=== PATIENT | female | born 1975 | race Caucasian/White ===

== ENCOUNTER → 2020-06-11 16:00 | Outpatient (BNVA) | payer OTHER, SELFPAY | PROVIDERS: Family Provider Family Medicine; Visit Provider Nurse Practitioner Women's Health | DX: Z01.419 Encounter for gynecological examination (general) (routine) without abnormal findings (principal); N90.7 Vulvar cyst | CPT/HCPCS: 88175 ==

== ENCOUNTER 2020-11-09 22:03 | Emergency (ER) | payer OTHER, SELFPAY ==
[2020-11-09 22:10] VITALS: BP 166/94; PULSE 103; RESP 18; TEMP 36.3; O2SAT 100; BMI 30.1
--- NOTE | 2020-11-09 22:17 | W.ED.CHESTPA ---
HPI - Chest Pain General: Chief Complaint: Chest Pain Stated Complaint: heaviness in chest, light headed, Time Seen by Provider: 11/09/20 22:17 Source: patient and family Mode of arrival: ambulatory Limitations: no limitations History of Present Illness: HPI narrative: Naomie is a nice 45-year-old female who comes in complaining of abrupt onset of lightheadedness followed by chest heaviness. She states that she was sitting at rest when this all started. After this she developed diffuse body tingling. Patient feels better now but still has the tingling and feels lightheaded. She said her chest heaviness is minimal if present at all anymore. Patient denies having anything similar to this in the past. Over the past week she has had courses of nausea and vomiting and diarrhea but she stated earlier today she felt better until this happened tonight. The symptoms tonight she cannot relate any exacerbating or alleviating factors. She denies having anything similar in the past. She has not tried anything for this at home. Associated symptoms: Deny abdominal pain, diaphoresis, dyspnea, fever(s), palpitations or syncope Review of Systems Const: Denies: fever(s), chills, body aches, fatigue, malaise or diaphoresis Eyes: Denies: change in vision, blurry vision, photophobia, eye discomfort, eye discharge, eye redness or yellow eyes ENMT: Denies: throat pain, odynophagia, hoarseness, swelling of lips/tongue, ear or mastoid pain, ear discharge, change in hearing or nasal discharge Card: Reports: chest pain; Denies: palpitations, irregular heart rhythm, edema, lightheadedness, syncope, pre-syncope, dyspnea on exertion or orthopnea Resp: Denies: dyspnea, productive cough, non-productive cough, wheezing, hemoptysis or chest congestion GI: Denies: abdominal pain, hematemesis, coffee ground emesis, heartburn, constipation, GI cramping, hematochezia or melena : Denies: flank pain, dysuria, urinary frequency, urinary urgency or hematuria Musc: Denies: neck pain, back pain, extremity pain, extremity swelling, joint pain, joint swelling, joint redness, joint warmth or joint stiffness Skin/Breast: Denies: rash, pruritus, erythema, skin pain or skin tenderness Neuro: Reports: dizziness; Denies: headache(s), numbness in extremities, weakness in extremities, sensory changes, lack of coordination, difficulty walking, vertigo, confusion, Slurred speech present or seizure-like activity Bladimir/Lymph: Denies: easy bruising, easy bleeding, petechiae, purpura or enlarged lymph nodes All/Imm: Denies: urticaria, throat swelling, tongue swelling, facial swelling or acute wheezing PFSH ED PFSH: Medical History (Updated 11/10/20 @ 02:05 by Natasha Dial) Polycystic kidney disease Surgical History History of appendectomy (~1986) Family History Family/Other Breast cancer Paternal aunt Mother Hypertension Denies family history of Colon cancer Ovarian cancer Diabetes Heart disease Hyperlipidemia Family history of thyroid problem Uterine cancer Stroke Social History Smoking and tobacco status: never smoked Alcohol intake: never Additional social history: - Tobacco use: Denies Alcohol use: Denies Drug use: Denies Physical Exam Const: COMMON NORMALS: no acute distress, patient oriented x3, no limitations and alert GENERAL APPEARANCE: cooperative HENMT: COMMON NORMALS: normocephalic, atraumatic, external ears normal, EAC's normal and Normal external nose present HEAD & SCALP: normal to inspection, normocephalic and atraumatic FACE & SINUS: normal facial exam and face symmetric NOSE: Normal external nose present and Normal nares present EXTERNAL EAR: Yes external ears normal EXTERNAL AUDITORY CANAL: EAC's normal MOUTH: Normal oral and palatal mucosa present, lip normal and tongue normal Eye: COMMON NORMALS: Equal, round and reactive pupils present and conjunctivae normal GENERAL EYE: appearance normal, both eyes and all related structures ALIGNMENT: Yes alignment normal PERIORBITAL: periorbital findings normal EYELID: eyelids normal CONJUNCTIVA: Yes conjunctivae normal SCLERA: sclerae normal PUPIL: Yes Equal, round and reactive pupils present Neck/C-Spine: COMMON NORMALS: full ROM, no lymphadenopathy, supple, no meningeal signs and no JVD GENERAL: Yes normal visual inspection and Yes trachea midline Chest: COMMONS NORMALS: normal inspection of the chest and normal palpation of entire chest wall Resp: COMMON NORMALS: normal respiratory effort, No retractions, No use of accessory muscles and clear to auscultation bilaterally EFFORT & INSPECTION: Yes able to speak in complete sentences and Yes symmetric chest movement AUSCULTATION: clear to auscultation bilaterally, no crackles, no rales, no rhonchi and no wheezes Cardio: COMMON NORMALS: no JVD, regular rate, regular rhythm, S1 normal heart sound present and S2 normal heart sound present RATE: regular rate RHYTHM: regular rhythm HEART SOUNDS: S1 normal heart sound present, S2 normal heart sound present, no click, no gallops, no murmurs and no rubs GI: COMMON NORMALS: Soft to palpation and No hepatosplenomegaly present PALPATION: Yes Soft to palpation, No Tenderness to palpation present (GI), No Guarding due to palpation present (GI), No Rigid due to palpation, Yes No hepatosplenomegaly present, No Hernia present, No Palpable mass present and No Pulsatile mass present : COMMON NORMALS: Yes no CVA tenderness BLADDER/KIDNEY EXAM: Yes no CVA tenderness EXTERNAL FEMALE EXAM: No Hernia present Back/Pelvis: COMMON NORMALS: no CVA tenderness, thoracic and lumbar spine normal to inspection, no thoracic nor lumbar tenderness and thoraco-lumbar ROM normal Extremity: COMMON NORMALS: normal to inspection, full ROM, capillary refill normal, no joint enlargement, no clubbing, cyanosis or edema and no calf tenderness Neuro: COMMON NORMALS: patient oriented x3, CN's II-XII intact bilaterally, moves all extremities, no focal motor deficits and no sensory deficits noted SENSORIUM/ORIENTATION: Yes alert MENINGEAL SIGNS: Yes no meningeal signs SPEECH: speech normal Psych: COMMON NORMALS: mental status grossly normal, Normal thought process present, cooperative, normal affect, speech normal and activity/motor behavior normal SPEECH: Yes normal speech THOUGHT PROCESS: Normal thought process present Skin: COMMON NORMALS: no rashes or lesions noted, turgor normal, no jaundice, no petechiae and no mottling GENERAL SKIN EXAM: no rashes or lesions noted and turgor normal Course Vital Signs: Vital signs: Vital Signs Temperature 97.3 F L 11/09/20 22:10 Pulse Rate 85 11/10/20 00:09 Respiratory Rate 18 11/10/20 01:00 Blood Pressure 120/68 11/10/20 01:00 Pulse Oximetry 97 11/10/20 01:00 MDM - Chest Pain MDM Narrative: Medical decision making narrative: 0004 -patient states she is currently feeling much better at this time. She states that she denies any chest heaviness. She has vomited once here and she states that since vomiting she feels much better. Currently she is resting comfortably with stable and normal vital signs. 0120 -patient still feels better. I discussed with her the findings of her CT scan. She understands him in an ultrasound to help better risk stratify her symptoms. Clinically I believe this pneumonia is likely the cause. It is possible she still has the COVID-19 virus and I am going to send the PTC. I have recommended also a VQ scan but the patient at this time does not feel like she wants to wait that long. We will proceed with ultrasound and if negative I will ask her again about how she would like to proceed. 0207 -Magalie is a very nice 45-year-old female who comes in with chest pressure but after vomiting all of her chest pressure resolved. The patient is felt better since then. Patient appeared to be somewhat dehydrated from her vomiting and diarrhea that she had at home prior to coming in. After IV fluids and antiemetic she is feeling much better. Chest x-ray reveals infiltrates but I do not believe she is aspirated. Think this is more likely COVID-19 pneumonia. Patient is going to be tested again and sent home on antibiotics. She understands to keep her self home and quarantine until contacted by us. Lab Data: Attestation: I reviewed the patient's lab results. Labs: Lab Results 11/09/20 11/09/20 11/09/20 Range/Units 22:12 22:12 22:12 WBC 10.2 H (4.0-10.0) 10^3/ uL RBC 4.34 (4.1-5.3) 10^6/u L Hgb 13.5 (11.5-15.3) g/dL Hct 40.4 (37.0-47.0) % MCV 93.1 (81-99) fL MCH 31.1 (28.0-34.0) pg MCHC 33.4 (30.0-36.0) g/dL RDW 12.7 (12.1-15.1) % Plt Count 247 (130-400) 10^3/c mm MPV 10.7 H (7.4-10.4) fL Neut % (Auto) 59.0 % Lymph % (Auto) 30.4 % Garfield % (Auto) 9.3 % Eos % (Auto) 0.5 % Baso % (Auto) 0.4 % Neut # (Auto) 6.03 (1.8-7.7) 10^3/u L Lymph # (Auto) 3.1 (0.8-4.8) 10^3/u L Garfield # (Auto) 1.0 H (0.2-0.9) 10^3/u L Eos # (Auto) 0.1 (0.0-0.8) 10^3/u L Baso # (Auto) 0.0 (0.0-0.1) 10^3/u L Nucleated RBC % (a uto) 0 % Nucleated RBCs # 0.0 /100WBC D-Dimer 1.21 H (0-0.59) ug/mIFE U Sodium 140 (136-145) mmol/L Potassium 4.2 (3.5-5.1) mmol/L Chloride 103 (98-107) mmol/L Carbon Dioxide 24 (22-29) mmol/L Anion Gap 17.2 (5-19) BUN 18 (6-20) mg/dL Creatinine 1.5 H (0.5-0.9) mg/dL GFR Calculation 37.2 L (90-130) mL/min Glucose 118 H (65-115) mg/dL Calculated Osmolal ity 293 (285-295) mOsm/k g Lactic Acid (0.5-2.2) mmol/L Calcium 9.0 (8.5-10.5) mg/dL Magnesium 2.4 H (1.7-2.3) mg/dL Total Bilirubin 0.3 (0.15-1.2) mg/dL AST 15 (0-32) U/L ALT 13 (0-33) U/L Alkaline Phosphata se 90 (35-105) IU/L Troponin T Baselin e (0-10) ng/L Troponin T 120 Min [place] (0-10) ng/L Delta Troponin T (0-10) ABS# Total Protein 7.2 (6.6-8.7) g/dL Albumin 4.4 (3.5-5.2) g/dL Globulin 2.8 (1.3-4.6) g/dL Lipase 60 (13-60) U/L HCG, Qual (Negative) Influenza Type A A g (Negative) Influenza Type B A g (Negative) SARS-CoV-2 Ag (Rap id) (Negative) 11/09/20 11/09/20 11/09/20 Range/Units 22:12 22:12 22:12 WBC (4.0-10.0) 10^3/ uL RBC (4.1-5.3) 10^6/u L Hgb (11.5-15.3) g/dL Hct (37.0-47.0) % MCV (81-99) fL MCH (28.0-34.0) pg MCHC (30.0-36.0) g/dL RDW (12.1-15.1) % Plt Count (130-400) 10^3/c mm MPV (7.4-10.4) fL Neut % (Auto) % Lymph % (Auto) % Garfield % (Auto) % Eos % (Auto) % Baso % (Auto) % Neut # (Auto) (1.8-7.7) 10^3/u L Lymph # (Auto) (0.8-4.8) 10^3/u L Garfield # (Auto) (0.2-0.9) 10^3/u L Eos # (Auto) (0.0-0.8) 10^3/u L Baso # (Auto) (0.0-0.1) 10^3/u L Nucleated RBC % (a uto) % Nucleated RBCs # /100WBC D-Dimer (0-0.59) ug/mIFE U Sodium (136-145) mmol/L Potassium (3.5-5.1) mmol/L Chloride (98-107) mmol/L Carbon Dioxide (22-29) mmol/L Anion Gap (5-19) BUN (6-20) mg/dL Creatinine (0.5-0.9) mg/dL GFR Calculation (90-130) mL/min Glucose (65-115) mg/dL Calculated Osmolal ity (285-295) mOsm/k g Lactic Acid 2.9 H (0.5-2.2) mmol/L Calcium (8.5-10.5) mg/dL Magnesium (1.7-2.3) mg/dL Total Bilirubin (0.15-1.2) mg/dL AST (0-32) U/L ALT (0-33) U/L Alkaline Phosphata se (35-105) IU/L Troponin T Baselin e 6 (0-10) ng/L Troponin T 120 Min [place] (0-10) ng/L Delta Troponin T (0-10) ABS# Total Protein (6.6-8.7) g/dL Albumin (3.5-5.2) g/dL Globulin (1.3-4.6) g/dL Lipase (13-60) U/L HCG, Qual Negative (Negative) Influenza Type A A g (Negative) Influenza Type B A g (Negative) SARS-CoV-2 Ag (Rap id) (Negative) 11/09/20 11/09/20 11/10/20 Range/Units 22:40 22:40 00:20 WBC (4.0-10.0) 10^3/ uL RBC (4.1-5.3) 10^6/u L Hgb (11.5-15.3) g/dL Hct (37.0-47.0) % MCV (81-99) fL MCH (28.0-34.0) pg MCHC (30.0-36.0) g/dL RDW (12.1-15.1) % Plt Count (130-400) 10^3/c mm MPV (7.4-10.4) fL Neut % (Auto) % Lymph % (Auto) % Garfield % (Auto) % Eos % (Auto) % Baso % (Auto) % Neut # (Auto) (1.8-7.7) 10^3/u L Lymph # (Auto) (0.8-4.8) 10^3/u L Garfield # (Auto) (0.2-0.9) 10^3/u L Eos # (Auto) (0.0-0.8) 10^3/u L Baso # (Auto) (0.0-0.1) 10^3/u L Nucleated RBC % (a uto) % Nucleated RBCs # /100WBC D-Dimer (0-0.59) ug/mIFE U Sodium (136-145) mmol/L Potassium (3.5-5.1) mmol/L Chloride (98-107) mmol/L Carbon Dioxide (22-29) mmol/L Anion Gap (5-19) BUN (6-20) mg/dL Creatinine (0.5-0.9) mg/dL GFR Calculation (90-130) mL/min Glucose (65-115) mg/dL Calculated Osmolal ity (285-295) mOsm/k g Lactic Acid (0.5-2.2) mmol/L Calcium (8.5-10.5) mg/dL Magnesium (1.7-2.3) mg/dL Total Bilirubin (0.15-1.2) mg/dL AST (0-32) U/L ALT (0-33) U/L Alkaline Phosphata se (35-105) IU/L Troponin T Baselin e (0-10) ng/L Troponin T 120 Min [place] 6.00 (0-10) ng/L Delta Troponin T 0 (0-10) ABS# Total Protein (6.6-8.7) g/dL Albumin (3.5-5.2) g/dL Globulin (1.3-4.6) g/dL Lipase (13-60) U/L HCG, Qual (Negative) Influenza Type A A g Negative (Negative) Influenza Type B A g Negative (Negative) SARS-CoV-2 Ag (Rap id) Negative (Negative) 11/10/20 Range/Units 00:20 WBC (4.0-10.0) 10^3/ uL RBC (4.1-5.3) 10^6/u L Hgb (11.5-15.3) g/dL Hct (37.0-47.0) % MCV (81-99) fL MCH (28.0-34.0) pg MCHC (30.0-36.0) g/dL RDW (12.1-15.1) % Plt Count (130-400) 10^3/c mm MPV (7.4-10.4) fL Neut % (Auto) % Lymph % (Auto) % Garfield % (Auto) % Eos % (Auto) % Baso % (Auto) % Neut # (Auto) (1.8-7.7) 10^3/u L Lymph # (Auto) (0.8-4.8) 10^3/u L Garfield # (Auto) (0.2-0.9) 10^3/u L Eos # (Auto) (0.0-0.8) 10^3/u L Baso # (Auto) (0.0-0.1) 10^3/u L Nucleated RBC % (a uto) % Nucleated RBCs # /100WBC D-Dimer (0-0.59) ug/mIFE U Sodium (136-145) mmol/L Potassium (3.5-5.1) mmol/L Chloride (98-107) mmol/L Carbon Dioxide (22-29) mmol/L Anion Gap (5-19) BUN (6-20) mg/dL Creatinine (0.5-0.9) mg/dL GFR Calculation (90-130) mL/min Glucose (65-115) mg/dL Calculated Osmolal ity (285-295) mOsm/k g Lactic Acid 1.0 (0.5-2.2) mmol/L Calcium (8.5-10.5) mg/dL Magnesium (1.7-2.3) mg/dL Total Bilirubin (0.15-1.2) mg/dL AST (0-32) U/L ALT (0-33) U/L Alkaline Phosphata se (35-105) IU/L Troponin T Baselin e (0-10) ng/L Troponin T 120 Min [place] (0-10) ng/L Delta Troponin T (0-10) ABS# Total Protein (6.6-8.7) g/dL Albumin (3.5-5.2) g/dL Globulin (1.3-4.6) g/dL Lipase (13-60) U/L HCG, Qual (Negative) Influenza Type A A g (Negative) Influenza Type B A g (Negative) SARS-CoV-2 Ag (Rap id) (Negative) Imaging Data^: CXR: Attestation: I personally reviewed and interpreted this imaging study as follows: My impression: No acute cardiopulmonary findings. CT Chest: Radiologist's impression: [address] [address] [address] Scan Report Signed Patient: Naomie Wyman #: [id number] : 1975Acct#:[id number] Age/Sex: 45 / FADM Date: 11/09/20 Loc: ERRoom/Bed: Attending Dr: Ordering Provider/Ordering MD: Natasha Dial DO Date of Service: 11/09/20 Procedure(s): CT angio chest PE protcl [id number] Accession Number(s): [id number] Report Number: [id number] PROCEDURE INFORMATION: Exam: CT Angiography Chest With Contrast Exam date and time: 11/09/2020 11:00 PM Age: 45 years old Clinical indication: Pain and abnormal findings; Abnormal diagnostic tests; Elevated d-dimer; Chest pain; Type not specified; Additional info: Chest pain/positive d-dimer TECHNIQUE: Imaging protocol: Computed tomographic angiography of the chest with intravenous contrast. 3D rendering (Not supervised by radiologist): MIP and/or 3D reconstructed images were created by the technologist. Radiation optimization: All CT scans at this facility use at least one of these dose optimization techniques: automated exposure control; mA and/or kV adjustment per patient size (includes targeted exams where dose is matched to clinical indication); or iterative reconstruction. Contrast material: VISI; Contrast volume: 95 ml; Contrast route: INTRAVENOUS (IV); COMPARISON: CR XR chest 1V portable [id number] 11/09/2020 10:20 PM RADIATION DOSE METRICS: Total DLP (mGy-cm): 1180.29 FINDINGS: Limitations: Suboptimal contrast opacification of the pulmonary arteries limits assessment of the peripheral branches. Pulmonary arteries: The pulmonary arteries are normal in caliber. No filling defects are demonstrated. No evidence of pulmonary embolism, within the technical limits of the examination. Aorta: Thoracic aorta is well opacified. No aortic aneurysm or dissection. Lungs: Mild peripheral ground-glass infiltrates are demonstrated in the right lower lobe. Noncalcified 6 mm left lower lobe pulmonary nodule, series 2, image 347. Pleural space: No pneumothorax. No pleural effusion. Heart: No cardiomegaly. No pericardial effusion. Lymph nodes: Mild bilateral hilar adenopathy with lymph nodes up to 11 mm in length noted. Liver: Multiple small hepatic cysts. Kidneys and ureters: Enlarged kidneys bilaterally, replaced by multiple cysts, consistent with polycystic kidney disease. The cysts are mostly simple appearing, although some contain minimal mural calcification. All demonstrate a probably benign appearance. Bones/joints: Unremarkable. No acute fracture. Soft tissues: The soft tissues appear unremarkable. CT/CT angio chest PE protcl [id number] IMPRESSION: 1. Suboptimal contrast opacification of the pulmonary arteries limits assessment of the peripheral branches. 2. The pulmonary arteries are normal in caliber. No filling defects are demonstrated. No evidence of pulmonary embolism, within the technical limits of the examination. 3. Thoracic aorta is well opacified. No aortic aneurysm or dissection. 4. Mild peripheral ground-glass infiltrates are demonstrated in the right lower lobe. A variety of infectious and noninfectious processes can give this appearance, including early viral pneumonia. 5. Noncalcified 6 mm left lower lobe pulmonary nodule, series 2, image 347. No additional pulmonary nodules. For patients at low risk (minimal or absent history of smoking and of other known risk factors), recommend CT Chest at 6-12 months, then consider CT Chest at 18-24 months. For patients at high risk (history of smoking or of other known risk factors), recommend CT Chest at 6-12 months, then [address] Chest at 18-24 months. (Reference: [place]) 6. Enlarged kidneys bilaterally, replaced by multiple cysts, consistent with polycystic kidney disease. There are multiple simple appearing hepatic cysts associated. COMMENTS: Consistent with the [employer]'s Incidental Findings Committee white paper (J Am Caprice Radiol 2018): Any incidental renal lesion less than 1 cm or classified as too small to characterize, or any incidental cystic renal lesion characterized as simple-appearing, is likely benign. No follow-up imaging is recommended for these lesions per consensus recommendations based on imaging criteria. REFERENCES: [place] H, et al. Guidelines for Management of Incidental Pulmonary Nodules Detected on CT Images: From the Fleischner Society 2017. Radiology. 2017;284(1):228-243. Radiation Dose CTDIVOL = (mGy): DLP = 1180.29 (mGy-cm) Dictated By:Dennis Valencia MD Signed By:Dennis Valenciaigned Date/Time:11/09/202358 DD/ 57 EKG Data^: EKG 1: Attestation: I personally reviewed and interpreted this EKG as follows: EKG interpretation date: 11/09/20 EKG interpretation time: 22:14 Interpretation: Sinus tachycardia 106 beats a minute, no blocks, normal axis, nonspecific ST and T wave changes. EKG 2: Attestation: I personally reviewed and interpreted this EKG as follows: EKG interpretation date: 11/10/20 EKG interpretation time: 00:11 Interpretation: Normal sinus rhythm at 76 beats a minute, no blocks, normal axis, no acute ST-T wave changes. Discharge Plan Discharge Patient Disposition: Home Clinical Impression: Incidental pulmonary nodule, Vomiting and diarrhea, At increased risk of exposure to COVID-19 virus Pneumonia Qualifiers: Pneumonia type: due to unspecified organism Laterality: right Lung location: lower lobe of lung Qualified Code(s): J18.9 - Pneumonia, unspecified organism Condition: Stable Prescriptions: New Zithromax Z-Eren 250 mg tablet See Rx Instructions .ROUTE .COMPLEX Qty: 6 RF: 0 dicyclomine 20 mg tablet 20 mg PO QID PRN (Reason: Abdominal Pain) 5 Days Qty: 20 RF: 0 promethazine 25 mg tablet 25 mg PO Q4H PRN (Reason: nausea and vomiting) Qty: 20 RF: 0 cefdinir 300 mg capsule 300 mg PO Q12H 10 Days Qty: 20 RF: 0 No Action ascorbic acid (vitamin C) 1,000 mg tablet extended release 1,000 mg PO DAILY RF: 0 magnesium oxide 500 mg capsule 500 mg PO DAILY RF: 0 Discharge Orders: Discharge ED (Routine); Ordered 11/10/20 Ordered By: Natasha Dial Referrals: Jeni Maier DO [Physician] - 1-3 days Discharge Diet: Advance as tolerated Discharge Activity: Increase activity as tolerated Patient Instructions: Acute Nausea and Vomiting (ED), Abdominal Pain (ED), Pneumonia (ED) Activity Restrictions/Additional Instructions: Please return to the ER immediately for any of the signs or symptoms listed on your discharge instruction sheets, worsening/changing of your symptoms, you are not getting better as quickly as expected, or for ANY other cause or concerns. Keep yourself at home and quarantined away from others until we notify you of your final Covid test. Take the antibiotics as I have prescribed them to you. Return to the ER for increased weakness, return of vomiting, new onset of shortness of breath, return of your chest discomfort, or for any other cause for concern. Coding Level of Care Code ED Bioinformatics Specialist for Chg Fwd Exam Comprehensive
--- NOTE | 2020-11-09 22:18 | XR_ITS ---
WS: [id number] XR chest 1V portable [id number] REASON FOR EXAM: Chest pressure FINDINGS: Moderate tortuosity of the giovanni ascending thoracic aorta for age. Normal heart size. Calcified granulomatous changes in both hemithoraces. Vague density seen overlying the inferior right hilar region which may represent posterior right lung opacity. Equivocal finding. Mild degenerative change in the mid and lower thoracic spine. XR/XR chest 1V portable [id number] IMPRESSION: Equivocal density in the right lung. Follow-up chest x-ray recommended.
--- NOTE | 2020-11-09 22:18 | ECG_ITS ---
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 Measurements Intervals Vici Rate: 106 P: 72 VT: 134 QRS: 27 QRSD: 82 T: 52 QT: 342 QTc: 454 Interpretive Statements SINUS TACHYCARDIA POSSIBLE LEFT ATRIAL ENLARGEMENT [-0.1mV P WAVE IN V1/V2] LOW QRS VOLTAGE IN PRECORDIAL LEADS [QRS DEFLECTION < 1.0 mV IN CHEST LEADS] MINIMAL ST DEPRESSION [0.025+ mV ST DEPRESSION] No previous ECG available for comparison Electronically Signed On 11-10-2020 19:36:08 PATIENT CASE COORDINATOR by Chiara Painter M.D. [id number]
[2020-11-09] MEDS: sodium chloride 0.9% 1,000 ML 999 ML IV (22:30)
[2020-11-09] MEDS: aspirin 325 mg Tablet PO (22:30)
[2020-11-09] MEDS: nitroglycerin 0.4 mg sublingual Tablet SUBLINGUAL (22:33)
[2020-11-09] MEDS: ondansetron 2 mg/ML SDV 2 mL 4 MG IVP (22:33)
[2020-11-09 22:39] VITALS: BP 137/92; PULSE 100; RESP 18; O2SAT 98
[2020-11-09 22:42] LABS: HCG, Serum Qual Negative (Negative)
[2020-11-09 22:45] LABS: D Dimer 1.21 ug/mIFEU (0-0.59)
[2020-11-09 22:48] LABS: Lactic Sepsis W/Reflex 2.9 mmol/L (0.5-2.2)
[2020-11-09 22:49] LABS: Alanine Aminotransferase 13 U/L (0-33); Albumin Level 4.4 g/dL (3.5-5.2); Alkaline Phosphatase 90 IU/L (35-105); Aspartate Amino Transferase 15 U/L (0-32); Blood Urea Nitrogen 18 mg/dL (6-20); Carbon Dioxide 24 mmol/L (22-29); Chloride 103 mmol/L (98-107); Globulin 2.8 g/dL (1.3-4.6); Glomerular Filtration Rate 37.2 mL/min (90-130); Glucose 118 mg/dL (65-115); Lipase 60 U/L (13-60); Magnesium 2.4 mg/dL (1.7-2.3); Osmolality Calculated 293 mOsm/kg (285-295); Sodium 140 mmol/L (136-145); Total Bilirubin 0.3 mg/dL (0.15-1.2); Total Protein 7.2 g/dL (6.6-8.7)
--- NOTE | 2020-11-09 22:49 | CTR_ITS ---
PROCEDURE INFORMATION: Exam: CT Angiography Chest With Contrast Exam date and time: 11/09/2020 11:00 PM Age: 45 years old Clinical indication: Pain and abnormal findings; Abnormal diagnostic tests; Elevated d-dimer; Chest pain; Type not specified; Additional info: Chest pain/positive d-dimer TECHNIQUE: Imaging protocol: Computed tomographic angiography of the chest with intravenous contrast. 3D rendering (Not supervised by radiologist): MIP and/or 3D reconstructed images were created by the technologist. Radiation optimization: All CT scans at this facility use at least one of these dose optimization techniques: automated exposure control; mA and/or kV adjustment per patient size (includes targeted exams where dose is matched to clinical indication); or iterative reconstruction. Contrast material: VISI; Contrast volume: 95 ml; Contrast route: INTRAVENOUS (IV); COMPARISON: CR XR chest 1V portable [id number] 11/09/2020 10:20 PM RADIATION DOSE METRICS: Total DLP (mGy-cm): 1180.29 FINDINGS: Limitations: Suboptimal contrast opacification of the pulmonary arteries limits assessment of the peripheral branches. Pulmonary arteries: The pulmonary arteries are normal in caliber. No filling defects are demonstrated. No evidence of pulmonary embolism, within the technical limits of the examination. Aorta: Thoracic aorta is well opacified. No aortic aneurysm or dissection. Lungs: Mild peripheral ground-glass infiltrates are demonstrated in the right lower lobe. Noncalcified 6 mm left lower lobe pulmonary nodule, series 2, image 347. Pleural space: No pneumothorax. No pleural effusion. Heart: No cardiomegaly. No pericardial effusion. Lymph nodes: Mild bilateral hilar adenopathy with lymph nodes up to 11 mm in length noted. Liver: Multiple small hepatic cysts. Kidneys and ureters: Enlarged kidneys bilaterally, replaced by multiple cysts, consistent with polycystic kidney disease. The cysts are mostly simple appearing, although some contain minimal mural calcification. All demonstrate a probably benign appearance. Bones/joints: Unremarkable. No acute fracture. Soft tissues: The soft tissues appear unremarkable. CT/CT angio chest PE protcl [id number] IMPRESSION: 1. Suboptimal contrast opacification of the pulmonary arteries limits assessment of the peripheral branches. 2. The pulmonary arteries are normal in caliber. No filling defects are demonstrated. No evidence of pulmonary embolism, within the technical limits of the examination. 3. Thoracic aorta is well opacified. No aortic aneurysm or dissection. 4. Mild peripheral ground-glass infiltrates are demonstrated in the right lower lobe. A variety of infectious and noninfectious processes can give this appearance, including early viral pneumonia. 5. Noncalcified 6 mm left lower lobe pulmonary nodule, series 2, image 347. No additional pulmonary nodules. For patients at low risk (minimal or absent history of smoking and of other known risk factors), recommend CT Chest at 6-12 months, then consider CT Chest at 18-24 months. For patients at high risk (history of smoking or of other known risk factors), recommend CT Chest at 6-12 months, then CT Chest at 18-24 months. (Reference: [place]) 6. Enlarged kidneys bilaterally, replaced by multiple cysts, consistent with polycystic kidney disease. There are multiple simple appearing hepatic cysts associated. COMMENTS: Consistent with the [place] [employer]'s Incidental Findings Committee white paper (J Am Caprice Radiol 2018): Any incidental renal lesion less than 1 cm or classified as too small to characterize, or any incidental cystic renal lesion characterized as simple-appearing, is likely benign. No follow-up imaging is recommended for these lesions per consensus recommendations based on imaging criteria. REFERENCES: [place] Banks, et al. Guidelines for Management of Incidental Pulmonary Nodules Detected on CT Images: From the Fleischner Society 2017. Radiology. 2017;284(1):228-243. Radiation Dose CTDIVOL = (mGy): DLP = 1180.29 (mGy-cm)
[2020-11-09 22:50] LABS: Troponin(5th) Baseline 6 ng/L (0-10)
[2020-11-09 22:55] LABS: Anion Gap 17.2 (5-19); Potassium 4.2 mmol/L (3.5-5.1)
[2020-11-09 23:02] LABS: Influenza A by IFA Negative (Negative); Influenza B by IFA Negative (Negative); SARS Covid-2 Antigen Negative (Negative)
[2020-11-09 23:07] VITALS: BP 147/88; PULSE 94; RESP 18; O2SAT 100
[2020-11-09] MEDS: LORazepam 2 mg/mL INJ 1 mL 0.5 MG IVP (23:11)
[2020-11-09 23:22] LABS: Basophils % 0.4 %; Eosinophils # 0.1 10^3/uL (0.0-0.8); Eosinophils % 0.5 %; Hematocrit 40.4 % (37.0-47.0); Hemoglobin 13.5 g/dL (11.5-15.3); Lymphocytes # 3.1 10^3/uL (0.8-4.8); Lymphocytes % 30.4 %; Mean Corpuscular HGB Conc 33.4 g/dL (30.0-36.0); Mean Corpuscular Hemoglobin 31.1 pg (28.0-34.0); Mean Corpuscular Volume 93.1 fL (81-99); Mean Platelet Volume 10.7 fL (7.4-10.4); Monocytes % 9.3 %; Neutrophils # 6.03 10^3/uL (1.8-7.7); Nucleated Red Blood Cells % 0 %; Platelet Count 247 10^3/cmm (130-400); Red Blood Count 4.34 10^6/uL (4.1-5.3); Red Cell Distribution Width 12.7 % (12.1-15.1); White Blood Count 10.2 10^3/uL (4.0-10.0)
[2020-11-09] MEDS: iodixanol 320 mg/mL 100mL Btl IV (23:37)
[2020-11-09] MEDS: sodium chloride 0.9% 2,313.33 ML 2313.3 ML IV (23:49)
[2020-11-10 00:09] VITALS: BP 121/77; PULSE 85; RESP 16; O2SAT 100
[2020-11-10 00:09] LABS: Reflex Lactate Order REFLEX LACTIC ORDERD
[2020-11-10] MEDS: levoFLOXacin 750 mg Tablet PO (00:13)
--- NOTE | 2020-11-10 00:18 | ECG_ITS ---
[facility] Test Date: 2020-11-10 Pat Name: Naomie Wyman Department: Room: Gender: Female Pony Ride Operator: : 1975 Requested By: Natasha Palomino Order Number: [id number] Stiles MD: Chiara Painter M.D. Measurements Intervals [place] Rate: 76 P: 73 MI: 141 QRS: 46 QRSD: 84 T: 57 QT: 401 QTc: 453 Interpretive Statements SINUS RHYTHM WITH SINUS ARRHYTHMIA LOW QRS VOLTAGE IN PRECORDIAL LEADS [QRS DEFLECTION < 1.0 mV IN CHEST LEADS] Compared to ECG 11/09/2020 22:14:15 Sinus tachycardia no longer present ST (T wave) deviation no longer present Electronically Signed On 11-10-2020 20:06:51 CERTIFIED ADAPTED PHYSICAL EDUCATOR by Chiara Painter M.D. [id number]
[2020-11-10 01:00] VITALS: BP 120/68; RESP 18; O2SAT 97
[2020-11-10 01:05] LABS: Troponin 5 2HR Delta 0 ABS# (0-10)
--- NOTE | 2020-11-10 01:15 | USCV_ITS ---
Naomie Wyman Age: 45 Gender: F : 1975 Exam Date: 11/10/2020 01:49 Ordering Phys: Natasha Dial DO Technologist: Trevin Woodward [place] [facility] [place] Indication: POS DIMER HISTORY: Edema. PROCEDURES: The venous duplex Doppler examination of both lower extremities was performed in the standard fashion. The following venous structures were evaluated: common femoral vein, profunda vein, proximal portion of the greater saphenous vein, superficial femoral vein, and the popliteal vein. In addition, the posterior tibial and peroneal trunk were evaluated. FINDINGS: Normal 2-D Doppler and augmentation and compressibility throughout the lower extremity venous structures. Additional imaging through the proximal calf veins also reveals no thrombus. Limited evaluation of the greater saphenous vein is patent with no thrombus.. CONCLUSIONS No evidence of DVT in the above-mentioned identifiable veins. Dr Layne Lopez MD [facility] (Electronically Signed) Final Date: 10 November 2020 14:16 S
[2020-11-10] MEDS: cefdinir 300 MG CAPSULE PO (02:56)
[2020-11-10] MEDS: azithromycin 250 mg Tablet 500 MG PO (02:56)
[2020-11-10 03:06] VITALS: BP 115/75; PULSE 101; RESP 18; O2SAT 99
== END 2020-11-10 03:08 | disposition home or self-care (01) ==
PROVIDERS: Emergency Provider Emergency Medicine
DX: J18.9 Pneumonia, unspecified organism (principal); R91.1 Solitary pulmonary nodule; R11.10 Vomiting, unspecified; R19.7 Diarrhea, unspecified; Z20.828 Contact with and (suspected) exposure to other viral communicable diseases
CPT/HCPCS: 12345; 71045; 71275; 80053; 83605; 83690; 83735; 84484; 84703; 85025; 85378; 87426; 87804; 93005; 93970; 96361; 96374; 96375; 99283; 99284; J2060; J2405; J7030; Q0144; Q9967

== ENCOUNTER 2020-11-10 10:48 | Emergency (ER) | payer OTHER, SELFPAY ==
[2020-11-10 10:53] VITALS: BP 133/74; PULSE 80; RESP 16; TEMP 36.4; O2SAT 99; BMI 27.4
--- NOTE | 2020-11-10 11:08 | ECG_ITS ---
[facility] Test Date: 2020-11-10 Pat Name: Naomie Wyman Department: Room: Gender: Female Environmental Advisor: : 1975 Requested By: Elio Larkin Order Number: [id number] Go MD: Chiara Painter M.D. Measurements Intervals [place] Rate: 69 P: 53 MI: 142 QRS: 64 QRSD: 78 T: 31 QT: 407 QTc: 437 Interpretive Statements SINUS RHYTHM LOW QRS VOLTAGE IN PRECORDIAL LEADS [QRS DEFLECTION < 1.0 mV IN CHEST LEADS] Compared to ECG 11/10/2020 00:11:12 Sinus arrhythmia no longer present Electronically Signed On 11-10-2020 19:31:29 TALENT ACQUISITION LEAD by Chiara Painter M.D. [id number]
--- NOTE | 2020-11-10 11:09 | ED_ITS ---
HPI - Nausea/Vomiting/Diarrhea General: Chief complaint: Nausea/Vomiting/Diarrhea Stated complaint: N/V, Here last night for Pneumonia Time Seen by Provider: 11/10/20 11:02 History of Present Illness: HPI Narrative: 45-year-old female presents to the emergency room with complaints of nausea and vomiting. She was seen overnight she been having diarrhea for a couple of days CT of her chest showed some groundglass infiltrates rapid antigen was negative PTC was recommended but patient declined her D-dimer was elevated all of which seems to point to Covid. Dr. Hollins was seen last night discussed this with her she declined to get the PTC testing. She returned home and started having more nausea and vomiting feels shaky. MD elicited complaint: nausea and vomiting Pertinent past history: other (COVID-19 suspected) Onset (ago): day(s) Description of vomiting: watery Description of diarrhea: semi-solid Associated nausea: Yes Associated abdominal pain: No Location of pain: None Severity: severe Quality: cramping Exacerbating factors: none Relieving factors: none Associated symtoms: Reports fatigue, fevers/chills, anorexia, malaise, myalgias, nausea and weakness; Denies altered mental status, anxiety, bloating, change in vision, chest pain, cough, diaphoresis, decreased urine output, dizziness, dysuria, epistaxis, fecal incontinence, headache(s), numbness, palpitations, rash, short of breath, syncope, tenesmus or tinnitus Review of Systems Const: Reports: fatigue and malaise; Denies: diaphoresis Eyes: Denies: change in vision ENMT: Denies: tinnitus or epistaxis Card: Denies: chest pain, palpitations or syncope Resp: Denies: dyspnea, productive cough or non-productive cough GI: Reports: nausea; Denies: bloating or fecal incontinence : Denies: dysuria Skin/Breast: Denies: rash or pruritus Neuro: Denies: headache(s) or dizziness Psych: Denies: anxiety PFSH ED PFSH: Medical History (Updated 11/10/20 @ 13:19 by Elio Reyez DO) Polycystic kidney disease Surgical History History of appendectomy (~1986) Family History Family/Other Breast cancer Paternal aunt Mother Hypertension Denies family history of Colon cancer Ovarian cancer Diabetes Heart disease Hyperlipidemia Family history of thyroid problem Uterine cancer Stroke Social History Smoking and tobacco status: never smoked Alcohol intake: never Additional social history: - Tobacco use: Denies Alcohol use: Denies Drug use: Denies Physical Exam Const: COMMON NORMALS: no acute distress EXAM LIMITATIONS: no altered mental status GENERAL APPEARANCE: cooperative and comfortable ORIENTATION/CONSCIOUSNESS: Yes awake, Yes oriented to person, Yes oriented to place and Yes oriented to time HENMT: COMMON NORMALS: normocephalic, atraumatic and hearing grossly normal bilaterally HEAD & SCALP: normocephalic and atraumatic Neck/C-Spine: COMMON NORMALS: no JVD Resp: COMMON NORMALS: normal respiratory effort, No retractions, No use of accessory muscles and clear to auscultation bilaterally AUSCULTATION: clear to auscultation bilaterally Cardio: COMMON NORMALS: no JVD, regular rate, regular rhythm and No murmurs present (Cardio) RATE: regular rate RHYTHM: regular rhythm GI: COMMON NORMALS: No hepatosplenomegaly present AUSCULTATION: Yes normoactive bowel sounds PALPATION: Yes Tenderness to palpation present (GI) (Mild diffuse abdominal tenderness no guarding or rebound), No Guarding due to palpation present (GI) and Yes No hepatosplenomegaly present Extremity: COMMON NORMALS: normal to inspection, capillary refill normal, no clubbing, cyanosis or edema, no calf tenderness and no pedal edema Neuro: SENSORIUM/ORIENTATION: Yes oriented to person, Yes oriented to place and Yes oriented to time Skin: COMMON NORMALS: no rashes or lesions noted GENERAL SKIN EXAM: no rashes or lesions noted Course Vital Signs: Vital signs: Vital Signs Temperature 97.6 F 11/10/20 10:53 Pulse Rate 87 11/10/20 14:12 Respiratory Rate 20 H 11/10/20 14:12 Blood Pressure 126/96 11/10/20 14:12 Pulse Oximetry 100 11/10/20 14:12 MDM - Nausea/Vomiting/Diarrhea MDM Narrative: Medical decision making narrative: Improved with IV fluids and at diet emetics. Still strongly suspect she does have Covid given her imaging findings and her other presentation. She does not meet criteria for notable bod y infusion at this point. We will go ahead and discharge her home push fluids Tylenol and ibuprofen as needed gave her dexamethasone and Zofran as well. Lab Data: Labs: Lab Results 11/10/20 11/10/20 11/10/20 Range/Units 11:11 11:11 12:52 WBC 5.3 (4.0-10.0) 10^3/ uL RBC 4.37 (4.1-5.3) 10^6/u L Hgb 12.7 (11.5-15.3) g/dL Hct 38.5 (37.0-47.0) % MCV 88.1 D (81-99) fL MCH 29.1 (28.0-34.0) pg MCHC 33.0 (30.0-36.0) g/dL RDW 12.6 (12.1-15.1) % Plt Count 242 (130-400) 10^3/c mm MPV 10.4 (7.4-10.4) fL Neut % (Auto) 73.2 % Lymph % (Auto) 17.5 % [place] % (Auto) 8.7 % Eos % (Auto) 0.2 % Baso % (Auto) 0.2 % Neut # (Auto) 3.86 (1.8-7.7) 10^3/u L Lymph # (Auto) 0.9 (0.8-4.8) 10^3/u L [place] # (Auto) 0.5 (0.2-0.9) 10^3/u L Eos # (Auto) 0.0 (0.0-0.8) 10^3/u L Baso # (Auto) 0.0 (0.0-0.1) 10^3/u L Nucleated RBC % (a uto) 0 % Nucleated RBCs # 0.0 /100WBC Sodium 141 (136-145) mmol/L Potassium 3.4 L (3.5-5.1) mmol/L Chloride 107 (98-107) mmol/L Carbon Dioxide 22 (22-29) mmol/L Anion Gap 15.4 (5-19) BUN 11 (6-20) mg/dL Creatinine 1.2 H (0.5-0.9) mg/dL GFR Calculation 48.2 L (90-130) mL/min Glucose 92 (65-115) mg/dL Calculated Osmolal ity 291 (285-295) mOsm/k g Calcium 8.7 (8.5-10.5) mg/dL Total Bilirubin 0.3 (0.15-1.2) mg/dL AST 15 (0-32) U/L ALT 12 (0-33) U/L Alkaline Phosphata se 69 (35-105) IU/L Total Protein 7.3 (6.6-8.7) g/dL Albumin 4.2 (3.5-5.2) g/dL Globulin 3.1 (1.3-4.6) g/dL Lipase 37 (13-60) U/L Urine Color Straw (Yellow) Urine Appearance Clear (CLEAR) Urine pH 7.0 (5-7) Ur Specific Gravit y 1.000 L (1.005-1.030) Urine Protein Neg (Negative) Urine Glucose (UA) Norm (Normal) Urine Ketones Negative (Negative) Urine Blood Neg (Negative) Urine Nitrate Negative (Negative) Urine Bilirubin Neg (Negative) Urine Urobilinogen Norm (Negative) mg/dL Ur Leukocyte Pretty ase Negative (Negative) Discharge Plan Discharge Patient Disposition: Home Clinical Impression: At increased risk of exposure to COVID-19 virus, Pneumonia Condition: Stable Prescriptions: New Zofran 4 mg tablet 4 mg PO Q6H PRN (Reason: nausea and vomiting) Qty: 20 RF: 0 dexamethasone 6 mg tablet 6 mg PO DAILY Qty: 7 RF: 0 No Action ascorbic acid (vitamin C) 1,000 mg tablet extended release 1,000 mg PO DAILY@21 RF: 0 magnesium oxide 500 mg capsule 500 mg PO DAILY@21 RF: 0 azithromycin [Zithromax Z-Eren] 250 mg tablet See Rx Instructions .ROUTE .COMPLEX Qty: 6 RF: 0 dicyclomine 20 mg tablet 20 mg PO QID PRN (Reason: Abdominal Pain) 5 Days Qty: 20 RF: 0 promethazine 25 mg tablet 25 mg PO Q4H PRN (Reason: nausea and vomiting) Qty: 20 RF: 0 cefdinir 300 mg capsule 300 mg PO Q12H 10 Days Qty: 20 RF: 0 multivitamin Tablet 1 tab PO DAILY@21 RF: 0 Tylenol Extra Strength 500 mg Tablet 1,500 mg PO PRN RF: 0 alprazolam 0.25 mg tablet 0.25 mg PO TID PRN (Reason: Anxiety) RF: 0 lisinopril 2.5 mg tablet See Rx Instructions .ROUTE .COMPLEX RF: 0 Discharge Orders: Discharge ED (Routine); Ordered 11/10/20 Ordered By: Elio Reyez Discharge Diet: Clear Liquid Discharge Activity: Increase activity as tolerated Activity Restrictions/Additional Instructions: Suspect that you have COVID-19 recommend remaining in quarantine until results are back. Clear liquid diet for the next 24 to 48 hours. Zofran as needed for nausea and vomiting return if any further problems. Coding Level of Care Code ED Containers Sales Representative for Tonya Fwd Exam Comprehensive
--- NOTE | 2020-11-10 11:32 | XR_ITS ---
WS: [id number] XR chest 1V portable [id number] REASON FOR EXAM: dyspnea/cough FINDINGS: The chest is unchanged compared to previous examination of 11/09/2020. CT scan has confirmed there ar e some patchy areas of groundglass density in the right lower lung. No new findings. XR/XR chest 1V portable [id number] IMPRESSION: Stable abnormal chest.
[2020-11-10 11:34] LABS: Basophils % 0.2 %; Eosinophils % 0.2 %; Hematocrit 38.5 % (37.0-47.0); Hemoglobin 12.7 g/dL (11.5-15.3); Lymphocytes # 0.9 10^3/uL (0.8-4.8); Lymphocytes % 17.5 %; Mean Corpuscular Hemoglobin 29.1 pg (28.0-34.0); Mean Corpuscular Volume 88.1 fL (81-99); Mean Platelet Volume 10.4 fL (7.4-10.4); Monocytes # 0.5 10^3/uL (0.2-0.9); Monocytes % 8.7 %; Neutrophils # 3.86 10^3/uL (1.8-7.7); Neutrophils % 73.2 %; Nucleated Red Blood Cells % 0 %; Platelet Count 242 10^3/cmm (130-400); Red Blood Count 4.37 10^6/uL (4.1-5.3); Red Cell Distribution Width 12.6 % (12.1-15.1); White Blood Count 5.3 10^3/uL (4.0-10.0)
[2020-11-10] MEDS: ondansetron 2 mg/ML SDV 2 mL 4 MG IVP (11:43)
[2020-11-10] MEDS: sodium chloride 0.9% 1,000 ML 999 ML IV ×2 (11:43→13:21)
[2020-11-10 11:50] LABS: Alanine Aminotransferase 12 U/L (0-33); Albumin Level 4.2 g/dL (3.5-5.2); Alkaline Phosphatase 69 IU/L (35-105); Anion Gap 15.4 (5-19); Aspartate Amino Transferase 15 U/L (0-32); Blood Urea Nitrogen 11 mg/dL (6-20); Calcium 8.7 mg/dL (8.5-10.5); Carbon Dioxide 22 mmol/L (22-29); Chloride 107 mmol/L (98-107); Globulin 3.1 g/dL (1.3-4.6); Glomerular Filtration Rate 48.2 mL/min (90-130); Glucose 92 mg/dL (65-115); Lipase 37 U/L (13-60); Osmolality Calculated 291 mOsm/kg (285-295); Potassium 3.4 mmol/L (3.5-5.1); Sodium 141 mmol/L (136-145); Total Bilirubin 0.3 mg/dL (0.15-1.2); Total Protein 7.3 g/dL (6.6-8.7)
[2020-11-10 13:06] LABS: Add Urine Microscopic? NO
[2020-11-10 13:24] LABS: Bilirubin Urine Neg (Negative); Blood Urine Neg (Negative); Glucose Urine UA Norm (Normal); Ketones Urine Negative (Negative); Leukocyte Esterase Urine Negative (Negative); Nitrate Urine Negative (Negative); Protein Urine Neg (Negative); Urine Appearance Clear (CLEAR); Urine Color Straw (Yellow); Urobilinogen Urine Norm (Negative)
[2020-11-10 13:27] VITALS: BP 97/80; PULSE 71; RESP 18; O2SAT 96
[2020-11-10 14:12] VITALS: BP 126/96; PULSE 87; RESP 20; O2SAT 100
[2020-11-12 07:49] LABS: Coronavirus Lab Test PTC Positive
--- NOTE | 2020-11-12 08:20 | PC.NURSE ---
Pt called and notified of positive COVID result
== END 2020-11-10 14:23 | disposition home or self-care (01) ==
PROVIDERS: Emergency Provider Family Medicine
DX: U07.1 COVID-19 (principal); J12.89 Other viral pneumonia
CPT/HCPCS: 12345; 71045; 80053; 81003; 83690; 85025; 87635; 93005; 96361; 96374; 96375; 99282; 99283; J2405; J7030

== ENCOUNTER 2020-12-01 06:12 | Emergency (ER) | payer OTHER, SELFPAY ==
[2020-12-01] VITALS (7 sets, daily range): BP systolic 116–124; BP diastolic 74–78; PULSE 74–100; RESP 18–22; TEMP 36.8; O2SAT 98–100; BMI 28.0
--- NOTE | 2020-12-01 06:37 | XR_ITS ---
WS: [id number] PORTABLE CHEST HISTORY: dyspnea/cough COMPARISON: 11/10/2020 Benign granuloma LEFT upper lobe is stable. No pneumonia. Normal vasculature. No pleural effusion or pneumothorax. Cardiac size: Normal. Mediastinum/Aorta: Normal mediastinum. No osseous abnormality seen. XR/XR chest 1V portable [id number] IMPRESSION: Unremarkable portable chest.
[2020-12-01 06:46] LABS: Basophils % 0.3 %; Hematocrit 35.7 % (37.0-47.0); Hemoglobin 11.8 g/dL (11.5-15.3); Lymphocytes # 1.2 10^3/uL (0.8-4.8); Lymphocytes % 13.3 %; Mean Corpuscular HGB Conc 33.1 g/dL (30.0-36.0); Mean Corpuscular Hemoglobin 29.1 pg (28.0-34.0); Mean Corpuscular Volume 88.1 fL (81-99); Mean Platelet Volume 10.2 fL (7.4-10.4); Monocytes # 0.5 10^3/uL (0.2-0.9); Monocytes % 6.2 %; Neutrophils # 6.97 10^3/uL (1.8-7.7); Nucleated Red Blood Cells % 0 %; Platelet Count 229 10^3/cmm (130-400); Red Blood Count 4.05 10^6/uL (4.1-5.3); Red Cell Distribution Width 12.8 % (12.1-15.1); White Blood Count 8.7 10^3/uL (4.0-10.0)
--- NOTE | 2020-12-01 06:46 | US_ITS ---
WS: [id number] RIGHT UPPER QUADRANT ULTRASOUND HISTORY: Abdominal pain. COMPARISON: None available. Liver: 15.8 cm in length. Normal size liver. No bile duct dilatation or mass. Gallbladder: Normally distended gallbladder with no stones or wall thickening. CBD: 0.5 cm Pancreas: Normal size and echogenicity. Right kidney: 17.5 cm in length. RIGHT kidney is enlarged. There are multiple cystic masses. Patient has known polycystic kidney disease. No solid mass identified. Aorta and IVC: Unremarkable abdominal aorta and IVC. No ascites. US/US gall bladder [id number] IMPRESSION: 1. Negative gallbladder. 2. Known RIGHT polycystic kidney disease.
--- NOTE | 2020-12-01 06:51 | W.ED.ABDPA2 ---
HPI - Abdominal Pain General: Chief Complaint: Abdominal Pain Stated Complaint: N/V Covid + 3wks Time Seen by Provider: 12/01/20 06:17 History of Present Illness: HPI narrative: 45-year-old female comes in complaining of abdominal pain epigastric radiating up into her chest and into her right shoulder. She has had nausea and vomiting with bilious vomiting. She denies any diarrhea began last night around 9:00 and has persisted. She had Covid about 3 to 4 weeks ago she denies any dysuria urgency or frequency no productive cough or shortness of breath noted. MD elicited complaint: abdominal pain Pertinent past history: other (recent COVID) Onset (ago): hour(s) Pain Consistency: constant Location: Diffuse Quality: cramping and aching Radiation: chest and other (R shoulder) Exacerbating factors: eating and vomiting Relieving factors: rest Associated Symptoms: Reports anorexia, bloating, chills, GI cramping, dyspepsia, heartburn, nausea, poor appetite and vomiting; Denies belching, change in bowel habits, change in stool character, coffee ground emesis, constipation, diarrhea, dysuria, excessive flatus, fever(s), hematochezia, hematuria, hematemesis, fecal incontinence, loose stools, melena and syncope Treatments prior to arrival: antacids Review of Systems Const: Reports: chills; Denies: fever(s) ENMT: Denies: throat pain, ear or mastoid pain, nasal discharge or nasal congestion Card: Denies: syncope Resp: Denies: dyspnea, productive cough or non-productive cough GI: Reports: nausea, vomiting, heartburn, bloating and GI cramping; Denies: hematemesis, coffee ground emesis, diarrhea, constipation, belching, excessive flatus, fecal incontinence, change in bowel habits, change in stool character, hematochezia or melena : Denies: dysuria or hematuria Skin/Breast: Denies: rash or pruritus PFSH ED PFSH: Medical History (Updated 12/01/20 @ 09:26 by Elio Reyez DO) Polycystic kidney disease Surgical History History of appendectomy (~1986) Family History Family/Other Breast cancer Paternal aunt Mother Hypertension Denies family history of Colon cancer Ovarian cancer Diabetes Heart disease Hyperlipidemia Family history of thyroid problem Uterine cancer Stroke Social History Smoking and tobacco status: never smoked Alcohol intake: never Additional social history: - Tobacco use: Denies Alcohol use: Denies Drug use: Denies Physical Exam Const: COMMON NORMALS: no acute distress GENERAL APPEARANCE: cooperative and comfortable ORIENTATION/CONSCIOUSNESS: Yes awake, Yes oriented to person, Yes oriented to place and Yes oriented to time HENMT: COMMON NORMALS: normocephalic, atraumatic and hearing grossly normal bilaterally HEAD & SCALP: normocephalic and atraumatic Neck/C-Spine: COMMON NORMALS: no JVD Resp: COMMON NORMALS: normal respiratory effort, No retractions, No use of accessory muscles and clear to auscultation bilaterally AUSCULTATION: clear to auscultation bilaterally Cardio: COMMON NORMALS: no JVD, regular rate, regular rhythm and No murmurs present (Cardio) RATE: regular rate RHYTHM: regular rhythm GI: COMMON NORMALS: Soft to palpation and No hepatosplenomegaly present AUSCULTATION: Yes normoactive bowel sounds PALPATION: Yes Soft to palpation, No Tenderness to palpation present (GI), No Guarding due to palpation present (GI) and Yes No hepatosplenomegaly present Extremity: COMMON NORMALS: normal to inspection, capillary refill normal, no clubbing, cyanosis or edema, no calf tenderness and no pedal edema Neuro: SENSORIUM/ORIENTATION: Yes oriented to person, Yes oriented to place and Yes oriented to time Skin: COMMON NORMALS: no rashes or lesions noted GENERAL SKIN EXAM: no rashes or lesions noted Course Vital Signs: Vital signs: Vital Signs Temperature 98.2 F 12/01/20 06:20 Pulse Rate 78 12/01/20 10:43 Respiratory Rate 18 12/01/20 10:43 Blood Pressure 122/78 12/01/20 10:43 Pulse Oximetry 98 12/01/20 10:43 MDM - Abdominal Pain MDM Narrative: Medical decision making narrative: Reviewed findings with the patient renal function is about at baseline other labs unremarkable CT unremarkable we will get a go ahead and discharge her home we will switch her to promethazine. We will get her set up for a HIDA scan and follow-up with general surgery for possible EGD she is having this persistently now over several weeks needs further evaluation return if has problems. Lab Data: Labs: Lab Results 12/01/20 12/01/20 12/01/20 Range/Units 06:36 06:36 07:02 WBC 8.7 (4.0-10.0) 10^3/ uL RBC 4.05 L (4.1-5.3) 10^6/u L Hgb 11.8 (11.5-15.3) g/dL Hct 35.7 L (37.0-47.0) % MCV 88.1 (81-99) fL MCH 29.1 (28.0-34.0) pg MCHC 33.1 (30.0-36.0) g/dL RDW 12.8 (12.1-15.1) % Plt Count 229 (130-400) 10^3/c mm MPV 10.2 (7.4-10.4) fL Neut % (Auto) 80.0 % Lymph % (Auto) 13.3 % [place] % (Auto) 6.2 % Eos % (Auto) 0.0 % Baso % (Auto) 0.3 % Neut # (Auto) 6.97 (1.8-7.7) 10^3/u L Lymph # (Auto) 1.2 (0.8-4.8) 10^3/u L [place] # (Auto) 0.5 (0.2-0.9) 10^3/u L Eos # (Auto) 0.0 (0.0-0.8) 10^3/u L Baso # (Auto) 0.0 (0.0-0.1) 10^3/u L Nucleated RBC % (a uto) 0 % Nucleated RBCs # 0.0 /100WBC Sodium 137 (136-145) mmol/L Potassium 3.8 (3.5-5.1) mmol/L Chloride 104 (98-107) mmol/L Carbon Dioxide 20 L (22-29) mmol/L Anion Gap 16.8 (5-19) BUN 17 (6-20) mg/dL Creatinine 1.3 H (0.5-0.9) mg/dL GFR Calculation 43.9 L (90-130) mL/min Glucose 118 H (65-115) mg/dL Calculated Osmolal ity 287 (285-295) mOsm/k g Calcium 8.9 (8.5-10.5) mg/dL Total Bilirubin 0.4 (0.15-1.2) mg/dL AST 15 (0-32) U/L ALT 21 (0-33) U/L Alkaline Phosphata se 71 (35-105) IU/L Creatine Kinase 47 (26-192) U/L Total Protein 6.8 (6.6-8.7) g/dL Albumin 3.8 (3.5-5.2) g/dL Globulin 3.0 (1.3-4.6) g/dL Lipase 52 (13-60) U/L Urine Color Straw (Yellow) Urine Appearance Clear (CLEAR) Urine pH 8.0 H (5-7) Ur Specific Gravit y 1.005 (1.005-1.030) Urine Protein Neg (Negative) Urine Glucose (UA) Norm (Normal) Urine Ketones Negative (Negative) Urine Blood Neg (Negative) Urine Nitrate Negative (Negative) Urine Bilirubin Neg (Negative) Prot Sulfosalicyli c Acd Negative (Negative) Urine Urobilinogen Norm (Negative) mg/dL Ur Leukocyte Pretty ase Negative (Negative) Discharge Plan Discharge Patient Disposition: Home Clinical Impression: Nausea & vomiting, Dyspepsia Condition: Stable Prescriptions: New promethazine 25 mg tablet 25 mg PO Q6H PRN (Reason: nausea and vomiting) Qty: 20 RF: 0 No Action ascorbic acid (vitamin C) 1,000 mg tablet extended release 2,000 mg PO DAILY@21 RF: 0 magnesium oxide 500 mg capsule 500 mg PO DAILY@21 RF: 0 Mylanta See Rx Instructions .ROUTE .COMPLEX RF: 0 zinc 1 tab PO DAILY@2100 RF: 0 multivitamin Tablet 1 tab PO DAILY@21 RF: 0 acetaminophen [Tylenol Extra Strength] 500 mg Tablet 1,500 mg PO PRN RF: 0 alprazolam 0.25 mg tablet 0.25 mg PO TID PRN (Reason: Anxiety) RF: 0 lisinopril 2.5 mg tablet 2.5 mg PO DAILY@2100 RF: 0 ondansetron HCl [Zofran] 4 mg tablet 4 mg PO Q6H PRN (Reason: nausea and vomiting) Qty: 20 RF: 0 Discharge Orders: Discharge ED (Routine); Ordered 12/01/20 Ordered By: Elio Reyez Discharge Diet: Clear Liquid Discharge Activity: Increase activity as tolerated Activity Restrictions/Additional Instructions: Case management will call to set you up to see general surgery as well as have a HIDA scan to further evaluate your gallbladder Coding Level of Care Code ED Textile Machine Maintenance Mechanic for Chg Fwd Exam Comprehensive
[2020-12-01 07:06] LABS: Alanine Aminotransferase 21 U/L (0-33); Albumin Level 3.8 g/dL (3.5-5.2); Alkaline Phosphatase 71 IU/L (35-105); Anion Gap 16.8 (5-19); Aspartate Amino Transferase 15 U/L (0-32); Blood Urea Nitrogen 17 mg/dL (6-20); Calcium 8.9 mg/dL (8.5-10.5); Carbon Dioxide 20 mmol/L (22-29); Chloride 104 mmol/L (98-107); Creatine Phosphokinase 47 U/L (26-192); Glomerular Filtration Rate 43.9 mL/min (90-130); Glucose 118 mg/dL (65-115); Lipase 52 U/L (13-60); Osmolality Calculated 287 mOsm/kg (285-295); Potassium 3.8 mmol/L (3.5-5.1); Sodium 137 mmol/L (136-145); Total Bilirubin 0.4 mg/dL (0.15-1.2); Total Protein 6.8 g/dL (6.6-8.7)
[2020-12-01] MEDS: ondansetron 2 mg/ML SDV 2 mL 4 MG IVP (07:10)
[2020-12-01] MEDS: sodium chloride 0.9% 1,000 ML 999 ML IV ×2 (07:10→09:34)
[2020-12-01 07:11] LABS: Creatinine Clr Calc Pharmacy 56.7116
[2020-12-01 07:35] LABS: Add Urine Microscopic? NO; Urine Appearance Clear (CLEAR); Urine Color Straw (Yellow)
[2020-12-01 07:36] LABS: Bilirubin Urine Neg (Negative); Blood Urine Neg (Negative); Glucose Urine UA Norm (Normal); Ketones Urine Negative (Negative); Leukocyte Esterase Urine Negative (Negative); Nitrate Urine Negative (Negative); Protein Urine Neg (Negative); Specific Gravity, Urine 1.005 (1.005-1.030); Sulfosalicylic Acid Urine Negative (Negative); Urobilinogen Urine Norm (Negative)
--- NOTE | 2020-12-01 07:57 | CT_ITS ---
WS: [id number] CT ABDOMEN AND PELVIS WITH CONTRAST HISTORY: Nausea and vomiting with abdominal pain. TECHNIQUE: Imaging performed of the abdomen and pelvis with IV contrast. Single phase imaging of the abdomen. Coronal and sagittal reformats are submitted. All CT scans at [facility] use at least one of these dose optimization techniques: automated exposure control; mA and/or kV adjustment per patient size (includes targeted exams where dose is matched to clinical indication); or iterativ e reconstruction. IV CONTRAST: Visipaque 320; 95 mL IV. Oral contrast: No DLP: 880.28 mGy.cm COMPARISON: Gallbladder ultrasound 12/01/2020. Lower thorax: Lung bases are clear. Heart is normal size. No hiatal hernia. Liver/biliary system: Liver is slightly enlarged and contains numerous hypodensities which are probab ly cysts. These were not evident on ultrasound due to their small size. These are subcentimeter. No d ilated ducts. Gallbladder: Normally distended gallbladder. Several stones are present at the neck of the gallbladde r. Pancreas: Normal. Spleen: Normal. Adrenal glands: Adrenal glands are poorly visualized. Right kidney: Markedly enlarged kidney with innumerable cystic masses. Consistent with known polycyst ic kidney disease. Largest cyst measures 5.0 cm. No obstruction is evident. Very little normal renal parenchyma is normally enhancing. Left kidney: Markedly enlarged kidney with multiple cysts. The largest measures 6 cm. There is a calc ification in the upper pole. The visualized renal parenchyma is normally enhancing. No solid mass or obstruction. Aorta: Normal. Lymphadenopathy: None. Free fluid: None. GI tract: Prior appendectomy. No obstructive pattern. Abdominal wall: Small fat-containing umbilical hernia. Pelvis: Normal size anteverted uterus. Low-attenuation area towards the anterior fundus measures 12 m m and probably a fibroid. Bilateral ovarian follicles. Bones: Unremarkable. CT/CT abdomen pelvis w con* [id number] IMPRESSION: 1. Cholelithiasis without evidence for acute cholecystitis. No bile duct dilat ation. 2. Polycystic kidney disease with no obstruction. 3. Polycystic liver disease. Cysts are subcentimeter and were not readily seen by ultrasound. 4. Prior appendectomy. 5. No free fluid.
[2020-12-01] MEDS: iodixanol 320 mg/mL 100mL Btl IV (08:12)
[2020-12-01] MEDS: promethazine 25 mg/mL SDV 1 mL IM (09:35)
--- NOTE | 2020-12-01 11:01 | DCPLANNER ---
client relationship manager had message to schedule a follow up appointment for patient with general surgery, and to schedule an outpatient HIDA scan. client relationship manager faxed order for HIDA scan to centralized scheduling, will call for appointment information.
--- NOTE | 2020-12-15 07:26 | DCPLANNER ---
Patient has a hida scan scheduled for , December 17, 2020 at 8:00. Centralized scheduling called patient to schedule the appointment. communications manager will email general surgery to see if a follow up appointment can be scheduled for patient with general surgery after the hida scan.
--- NOTE | 2020-12-18 13:52 | DCPLANNER ---
Patient had a follow up appointment scheduled for 12.17.20 for a hida scan - patient did attend appointment. manager of corporate asked general surgery to reach out for another appointment. Clinic spoke with patient, but patient declined general surgery appointment at this time.
== END 2020-12-01 10:58 | disposition home or self-care (01) ==
PROVIDERS: Emergency Provider Family Medicine
DX: R10.13 Epigastric pain (principal); R11.2 Nausea with vomiting, unspecified; Z86.16 Personal history of COVID-19
CPT/HCPCS: 12345; 71045; 74177; 76705; 80053; 81003; 82550; 83690; 85025; 96361; 96372; 96374; 96375; 99283; 99284; J2405; J2550; J7030; Q9967

== ENCOUNTER 2020-12-10 13:45 | Outpatient (CLI) | payer OTHER, SELFPAY ==
--- NOTE | 2020-12-10 13:50 | MM_ITS ---
WS: [id number] BILATERAL DIGITAL SCREENING MAMMOGRAPHY WITH CAD CLINICAL INFORMATION: SCREENING HISTORY: Screening mammogram. No current complaints. COMPARISON: [id number] TECHNIQUE: Bilateral CC and MLO views. FINDINGS: The breasts are composed of heterogeneous fibroglandular density tissue, which can limit the detectio n of small underlying mass lesions. Asymmetric nodular density measuring 9 mm outer left breast poste rior depth. This is best seen on the cc view and appears new compared to 2019. Recommend further eval uation left diagnostic mammography with spot compression views and ultrasound. Right breast is unchanged. MM/[place] [id number] IMPRESSION: BI-RADS: 0-Incomplete: Need additional imaging evaluation FOLLOW UP: Need Additional Imaging
== END 2020-12-10 13:46 | disposition home or self-care (01) ==
PROVIDERS: PCP Family Medicine; Visit Provider Family Medicine
DX: Z12.31 Encounter for screening mammogram for malignant neoplasm of breast (principal); N64.89 Other specified disorders of breast
CPT/HCPCS: 77067

== ENCOUNTER 2020-12-18 07:06 | Outpatient (CLI) | payer OTHER, SELFPAY ==
--- NOTE | 2020-12-18 07:15 | NM_ITS ---
WS: [id number] NUCLEAR MEDICINE HIDA SCAN WITH GALLBLADDER EJECTION FRACTION HISTORY: NAUSEA, VOMITING COMPARISON: Gallbladder ultrasound 12/01/2020. TECHNIQUE: The patient was intravenously injected with 8.2 mCi of TC99m Mebrofenin. Immediate imaging over the right upper quadrant was followed by 5 minute image and additional images for a total of 60 minutes. Normal uptake of radiotracer throughout the liver. Activity identified in the gallbladder at 20 minutes and well distended by 60 minutes. Activity in the proximal small bowel was seen by 20 minutes. Good washout of the radiotracer from the liver by 60 minutes. The patient then drank 8 ounces of Ensure Plus. Ejection fraction at 60 minutes was 60%. Normal GB ej ection fraction is 35-75%. Post fatty meal symptoms: None. NM/NM hepatobiliary w phar* [id number] IMPRESSION: 1. Normal HIDA scan. 2. Normal gallbladder ejection fraction.
== END 2020-12-18 07:07 | disposition home or self-care (01) ==
LOC: RAD 07:10
PROVIDERS: PCP Family Medicine; Visit Provider Family Medicine
DX: R11.2 Nausea with vomiting, unspecified (principal)
CPT/HCPCS: 78227; A9537

== ENCOUNTER 2020-12-30 09:23 | Outpatient (CLI) | payer OTHER, SELFPAY ==
--- NOTE | 2020-12-30 10:07 | US_ITS ---
WS: [id number] LEFT DIGITAL MAMMOGRAPHY WITH CAD CLINICAL INFORMATION: ABNORMAL MAMMOGRAM COMPARISON: December 10, 2020 TECHNIQUE: 4 views of the left breast were obtained. FINDINGS: The left breast is composed of heterogeneous fibroglandular density tissue, which can limit the detec tion of small underlying mass lesions. Again seen is the asymmetric 9 mm nodular density outer left b reast posterior depth. This is less conspicuous on today's study. Ultrasound is pending. ULTRASOUND BREAST LEFT TECHNIQUE: Ultrasound left breast focused area of concern. CLINICAL INFORMATION: ABNORMAL MAMMOGRAM COMPARISON: None. FINDINGS: Ultrasound left breast at the 12 to 3:00 position 4 cm from the nipple. There are several ectatic dil ated ducts and simple cysts. Hypoechoic or complex cystic lesion at the 2:00 position 3 cm from the n ipple likely represents a complex cyst measuring 6 mm. In addition, at the 12:00 position 2 cm from the nipple is an ovoid debris-filled duct or hypoechoic lesion measuring 1.4 x 0.5 x 0.8 cm with an adjacent smaller lesion measuring 9.4 x 3.8 x 5.6 mm. The se are indeterminate and recommend further evaluation with ultrasound-guided biopsy. US/US breast LT limited* [id number] IMPRESSION: BI-RADS: 4-Suspicious Finding-Biopsy Should Be Considered FOLLOW UP: US Guided Biopsy Recommended RECOMMEND ULTRASOUND-GUIDED BIOPSY OF THE SMALL 12:00 LESIONS DESCRIBED DORON Arevalo
== END 2020-12-30 09:24 | disposition home or self-care (01) ==
LOC: RADSHAW 09:24
PROVIDERS: PCP Family Medicine; Visit Provider Family Medicine
DX: R92.8 Other abnormal and inconclusive findings on diagnostic imaging of breast (principal); N64.89 Other specified disorders of breast
CPT/HCPCS: 76642; 77065

== ENCOUNTER 2021-01-11 11:47 | Outpatient (CLI) | payer OTHER, SELFPAY ==
--- NOTE | 2021-01-11 11:51 | US_ITS ---
WS: [id number] ULTRASOUND-GUIDED LEFT BREAST BIOPSY x2. HISTORY: ABNORMAL MAMMOGRAM LEFT COMPARISON: 12/30/2020 and 12/10/2020 Procedure, risks and complications are explained to the patient. Medications are reviewed. Consent is obtained. 2 masses in the LEFT breast are localized at 12:00, 2 cm from the nipple. Skin is cleansed with Chlor aPrep and anesthetized with 1% buffered lidocaine. Small dermatome is made. Under sterile conditions each mass is biopsied with a 14-gauge Achieve needle. Multiple core biopsies are performed. Material placed in formalin and sent to pathology for review. No complications encountered. Biopsy labeled #1. Breast tissue marker (Bard ultrasound enhanced ribbon): Single marker clip, ultras ound enhanced ribbon. Biopsy labeled #2. Breast tissue marker (SecurMark clip): Single titanium biopsy site marker. Patient left the radiology suite with no complications. Patient is instructed to return to [facility] or [facility] with any concerns. US/[place] [id number] IMPRESSION: 1. Uncomplicated core needle biopsy LEFT breast 12:00, 2 cm from the nipple, l abeled #1. PATHOLOGY: Benign fibrocystic changes with tubular adenosis and stromal scleros is. No malignancy. RECOMMENDATION: Diagnostic LEFT mammogram in 6 months with possible ultrasound. 2. Uncomplicated core needle biopsy LEFT breast 12:00, 2 cm from the nipple, l abeled #2. PATHOLOGY: Benign fibrocystic changes with tubular adenosis and stromal scleros is. No malignancy identified. RECOMMENDATION: Diagnostic LEFT mammogram in 6 months with possible ultrasound. BI-RADS 3. Diagnostic LEFT mammogram in 6 months with ultrasound to follow.
== END 2021-01-11 11:48 | disposition home or self-care (01) ==
LOC: RAD 11:50
PROVIDERS: PCP Family Medicine; Visit Provider Family Medicine
DX: D24.2 Benign neoplasm of left breast (principal)
CPT/HCPCS: 19083; 19084; 88305

== ENCOUNTER 2021-10-04 23:36 | Emergency (ER) | payer OTHER, SELFPAY ==
--- NOTE | 2021-10-04 23:37 | XRR_ITS ---
PROCEDURE INFORMATION: Exam: XR Chest Exam date and time: 10/04/2021 11:37 PM Age: 45 years old Clinical indication: Pain; Left-sided; Additional info: Cp TECHNIQUE: Imaging protocol: XR of the chest. Views: 1 view. COMPARISON: CR XR chest 1V portable [id number] 12/01/2020 7:06 AM FINDINGS: Lungs: Unremarkable. No consolidation. Pleural spaces: Unremarkable. No pleural effusion. No pneumothorax. Heart/Mediastinum: Unremarkable. No cardiomegaly. Bones/joints: Unremarkable. XR/XR chest 1V portable [id number] IMPRESSION: No acute findings. Radiation Dose CTDIVOL = (mGy): DLP = (mGy-cm)
[2021-10-04 23:46] VITALS: BP 133/85; PULSE 79; RESP 16; TEMP 37; O2SAT 98; BMI 29.1
--- NOTE | 2021-10-05 00:06 | W.ED.CHESTPA ---
HPI - Chest Pain General: Chief Complaint: Chest Pain Stated Complaint: Chest Pains and N Time Seen by Provider: 10/04/21 23:51 Source: patient Mode of arrival: ambulatory Limitations: no limitations History of Present Illness: HPI narrative: 45-year-old female has a history of polycystic kidney disease states that tonight at 940 she started having chest discomfort. States that pain has been ongoing since then states she still has a pressure type feeling in the center of her chest she denies any dyspnea she states she has had some swelling in her feet and hands and some tingling. Denies any worsening improving factors she denies any cough or dyspnea Associated symptoms: Deny abdominal pain, dyspnea, fever(s), nausea or vomiting Review of Systems Const: Denies: fever(s), chills, body aches or change in appetite Eyes: Denies: blurry vision or eye discomfort ENMT: Denies: throat pain or dental pain Card: Reports: chest pain Resp: Denies: dyspnea GI: Denies: abdominal pain, nausea, vomiting or diarrhea : Denies: dysuria Musc: Denies: neck pain or back pain Skin/Breast: Denies: rash Neuro: Denies: headache(s) Psych: Denies: depression Bladimir/Lymph: Denies: easy bruising All/Imm: Denies: urticaria PFSH ED PFSH: Medical History (Updated 10/05/21 @ 03:16 by Stuart Kearns MD) Polycystic kidney disease Surgical History History of appendectomy (~1986) Family History Family/Other Breast cancer Paternal aunt Mother Hypertension Denies family history of Colon cancer Ovarian cancer Diabetes Heart disease Hyperlipidemia Family history of thyroid problem Uterine cancer Stroke Social History Smoking and tobacco status: never smoked Alcohol intake: never Additional social history: - Tobacco use: Denies Alcohol use: Denies Drug use: Denies Female Reproductive History: Date of last menstrual period: 09/20/21 Physical Exam Const: COMMON NORMALS: no acute distress, patient oriented x3 and healthy appearing HENMT: COMMON NORMALS: normocephalic and atraumatic HEAD & SCALP: normocephalic and atraumatic Eye: COMMON NORMALS: Equal, round and reactive pupils present and EOMs intact bilaterally PUPIL: Yes Equal, round and reactive pupils present Neck/C-Spine: COMMON NORMALS: full ROM and supple Chest: COMMONS NORMALS: normal inspection of the chest and normal palpation of entire chest wall Resp: COMMON NORMALS: normal respiratory effort, No retractions, No use of accessory muscles and clear to auscultation bilaterally AUSCULTATION: clear to auscultation bilaterally Cardio: COMMON NORMALS: regular rate, regular rhythm and No murmurs present (Cardio) RATE: regular rate RHYTHM: regular rhythm GI: COMMON NORMALS: Normal to inspection, nondistended, normoactive bowel sounds present, Soft to palpation, non-tender and no masses PALPATION: Yes Soft to palpation Extremity: COMMON NORMALS: normal to inspection and full ROM Neuro: COMMON NORMALS: patient oriented x3, moves all extremities and no focal motor deficits Psych: COMMON NORMALS: mental status grossly normal, Normal thought process present and cooperative THOUGHT PROCESS: Normal thought process present Skin: COMMON NORMALS: no rashes or lesions noted and no wounds GENERAL SKIN EXAM: no rashes or lesions noted Course Vital Signs: Vital signs: Vital Signs Temperature 98.6 F 10/04/21 23:46 Pulse Rate 67 10/05/21 00:54 Respiratory Rate 15 10/05/21 00:54 Blood Pressure 128/76 10/05/21 00:54 Pulse Oximetry 98 10/05/21 00:54 MDM - Chest Pain MDM Narrative: Medical decision making narrative: Patient presents for chest pains atypical in nature patient's initial and repeat troponins on x-ray and EKG are normal was improved after Zofran and IV fluids abdominal exam is benign no tenderness no signs of acute surgical abdomen patient has no signs of aortic dissection or pulmonary embolism she is stable for discharge she is to follow-up with PCP in 2 to 4 days return if worsening she understands agrees to plan. Lab Data: Labs: Lab Results 10/05/21 10/05/21 10/05/21 00:19 00:19 00:19 WBC 8.6 10^3/uL 10^3/ uL (4.0-10.0) RBC 4.05 10^6/uL L 10 ^6/uL (4.1-5.3) Hgb 11.8 g/dL g/dL (11.5-15.3) Hct 36.0 % L % (37.0-47.0) MCV 88.9 fl fl (81-99) MCH 29.1 pg pg (28.0-34.0) MCHC 32.8 g/dL g/dL (30.0-36.0) RDW 12.5 % % (12.1-15.1) Plt Count 220 10^3/cmm 10^3 /cmm (130-400) MPV 10.7 fL H fL (7.4-10.4) Neut % (Auto) 78.7 % % Lymph % (Auto) 13.1 % % Duval % (Auto) 6.6 % % Eos % (Auto) 0.8 % % Baso % (Auto) 0.5 % % Neut # (Auto) 6.76 10^3/uL 10^3 /uL (1.8-7.7) Lymph # (Auto) 1.1 10^3/uL 10^3/ uL (0.8-4.8) Duval # (Auto) 0.6 10^3/uL 10^3/ uL (0.2-0.9) Eos # (Auto) 0.1 10^3/uL 10^3/ uL (0.0-0.8) Baso # (Auto) 0.0 10^3/uL 10^3/ uL (0.0-0.1) Nucleated RBC % (a uto) 0 % % Nucleated RBCs # 0.0 /100WBC /100W BC Sodium 139 mmol/L mmol/L (136-145) Potassium 3.5 mmol/L mmol/L (3.5-5.1) Chloride 103 mmol/L mmol/L (98-107) Carbon Dioxide 22 mmol/L mmol/L (22-29) Anion Gap 17.5 (5-19) BUN 29 mg/dL H mg/dL (6-20) Creatinine 1.7 mg/dL H mg/dL (0.5-0.9) GFR Calculation 32.2 mL/min L mL/ min (90-130) Glucose 140 mg/dL H mg/dL (65-115) Calculated Osmolal ity 296 mOsm/kg H mOs m/kg (285-295) Calcium 9.2 mg/dL mg/dL (8.5-10.5) Total Bilirubin 0.2 mg/dL mg/dL (0.15-1.2) AST 10 U/L U/L (0-32) ALT 9 U/L U/L (0-33) Alkaline Phosphata se 62 IU/L IU/L (35-105) Troponin T Baselin e 6 ng/L ng/L (0-10) Troponin T [address] [place] Troponin T Total Protein 6.8 g/dL g/dL (6.6-8.7) Albumin 4.3 g/dL g/dL (3.5-5.2) Globulin 2.5 g/dL g/dL (1.3-4.6) 10/05/21 02:11 WBC RBC Hgb Hct MCV MCH MCHC RDW Plt Count MPV Neut % (Auto) Lymph % (Auto) Duval % (Auto) Eos % (Auto) Baso % (Auto) Neut # (Auto) Lymph # (Auto) Duval # (Auto) Eos # (Auto) Baso # (Auto) Nucleated RBC % (a uto) Nucleated RBCs # Sodium Potassium Chloride Carbon Dioxide Anion Gap BUN Creatinine GFR Calculation Glucose Calculated Osmolal ity Calcium Total Bilirubin AST ALT Alkaline Phosphata se Troponin T Baselin e Troponin T [address] [place] 6.00 ng/L ng/L (0-10) Delta Troponin T 0 ABS# ABS# (0-10) Total Protein Albumin Globulin Imaging Data^: CXR: Attestation: I personally reviewed and interpreted this imaging study as follows: My impression: no acute abnormalities EKG Data^: EKG 1: Attestation: I personally reviewed and interpreted this EKG as follows: EKG interpretation date: 10/04/21 EKG interpretation time: 23:44 Interpretation: nsr hr [address] or t wave abnormalities qrs 80 qtc 401 EKG 2: Attestation: I personally reviewed and interpreted this EKG as follows: EKG interpretation date: 10/05/21 EKG interpretation time: 02:24 Interpretation: nsr hr [address] or t wave abnormalities qrs 81 qtc 416 Discharge Plan Discharge Patient Disposition: Home Clinical Impression: Chest pain Qualifiers: Chest pain type: unspecified Qualified Code(s): R07.9 - Chest pain, unspecified Condition: Stable Prescriptions: New ondansetron 4 mg tablet,disintegrating 4 mg PO Q6H PRN (Reason: nausea and vomiting) Qty: 14 RF: 0 No Action ascorbic acid (vitamin C) 1,000 mg tablet extended release 2,000 mg PO DAILY@21 RF: 0 magnesium oxide 500 mg capsule 500 mg PO DAILY@21 RF: 0 Mylanta See Rx Instructions .ROUTE .COMPLEX RF: 0 zinc 1 tab PO DAILY@2100 RF: 0 promethazine 25 mg tablet 25 mg PO Q6H PRN (Reason: nausea and vomiting) Qty: 20 RF: 0 multivitamin Tablet 1 tab PO DAILY@21 RF: 0 acetaminophen [Tylenol Extra Strength] 500 mg Tablet 1,500 mg PO PRN RF: 0 alprazolam 0.25 mg tablet 0.25 mg PO TID PRN (Reason: Anxiety) RF: 0 lisinopril 2.5 mg tablet 2.5 mg PO DAILY@2100 RF: 0 ondansetron HCl [Zofran] 4 mg tablet 4 mg PO Q6H PRN (Reason: nausea and vomiting) Qty: 20 RF: 0 Discharge Orders: Discharge ED (Routine); Ordered 10/05/21 Ordered By: Stuart Kearns Referrals: Dino Norton DO [Primary Care Provider] - 1-3 days Discharge Diet: Advance as tolerated Discharge Activity: Resume usual activity Patient Instructions: Chest Pain (ED) Coding Level of Care Code ED Coloring Machine Operator for Tonya Fwd Exam Comprehensive
[2021-10-05 00:17] VITALS: BP 116/98; PULSE 68; RESP 15; O2SAT 99
[2021-10-05] MEDS: aspirin 81 mg Chew Tablet 324 MG PO (00:30)
[2021-10-05] MEDS: nitroglycerin 0.4 mg sublingual Tablet SUBLINGUAL (00:30)
[2021-10-05 00:35] LABS: Basophils % 0.5 %; Eosinophils # 0.1 10^3/uL (0.0-0.8); Eosinophils % 0.8 %; Hemoglobin 11.8 g/dL (11.5-15.3); Lymphocytes # 1.1 10^3/uL (0.8-4.8); Lymphocytes % 13.1 %; Mean Corpuscular HGB Conc 32.8 g/dL (30.0-36.0); Mean Corpuscular Hemoglobin 29.1 pg (28.0-34.0); Mean Corpuscular Volume 88.9 fl (81-99); Mean Platelet Volume 10.7 fL (7.4-10.4); Monocytes # 0.6 10^3/uL (0.2-0.9); Monocytes % 6.6 %; Neutrophils # 6.76 10^3/uL (1.8-7.7); Neutrophils % 78.7 %; Nucleated Red Blood Cells % 0 %; Platelet Count 220 10^3/cmm (130-400); Red Blood Count 4.05 10^6/uL (4.1-5.3); Red Cell Distribution Width 12.5 % (12.1-15.1); White Blood Count 8.6 10^3/uL (4.0-10.0)
[2021-10-05 00:42] LABS: Troponin(5th) Baseline 6 ng/L (0-10)
[2021-10-05 00:43] LABS: Alanine Aminotransferase 9 U/L (0-33); Albumin Level 4.3 g/dL (3.5-5.2); Alkaline Phosphatase 62 IU/L (35-105); Anion Gap 17.5 (5-19); Aspartate Amino Transferase 10 U/L (0-32); Blood Urea Nitrogen 29 mg/dL (6-20); Calcium 9.2 mg/dL (8.5-10.5); Carbon Dioxide 22 mmol/L (22-29); Chloride 103 mmol/L (98-107); Globulin 2.5 g/dL (1.3-4.6); Glomerular Filtration Rate 32.2 mL/min (90-130); Glucose 140 mg/dL (65-115); Osmolality Calculated 296 mOsm/kg (285-295); Potassium 3.5 mmol/L (3.5-5.1); Sodium 139 mmol/L (136-145); Total Bilirubin 0.2 mg/dL (0.15-1.2); Total Protein 6.8 g/dL (6.6-8.7)
[2021-10-05 00:54] VITALS: BP 128/76; PULSE 67; RESP 15; O2SAT 98
--- NOTE | 2021-10-05 01:37 | ECG_ITS ---
[facility] Test Date: 2021-10-05 Pat Name: Naomie Wyman Department: Room: Gender: Female School Traffic Supervisor: : 1975 Requested By: Stuart Kearns Order Number: [id number] Go MD: Chiara Painter M.D. Measurements Intervals [place] Rate: 70 P: 40 IN: 133 QRS: 3 QRSD: 81 T: 35 QT: 396 QTc: 428 Interpretive Statements SINUS RHYTHM Compared to ECG 11/10/2020 11:31:20 No significant changes Electronically Signed On 10-06-2021 7:42:17 ORNAMENTAL PAINTER by Chiara Painter M.D. [id number]
[2021-10-05] MEDS: ondansetron 2 mg/ML SDV 2 mL 4 MG IVP (02:12)
[2021-10-05 02:32] LABS: Troponin 5 2HR Delta 0 ABS# (0-10)
[2021-10-05] MEDS: sodium chloride 0.9% 500 ML 999 ML IV (02:51)
[2021-10-05 03:37] VITALS: BP 120/81; PULSE 71; RESP 16; O2SAT 99
== END 2021-10-05 03:38 | disposition home or self-care (01) ==
PROVIDERS: Emergency Provider Emergency Medicine; PCP Family Medicine
DX: R07.89 Other chest pain (principal)
CPT/HCPCS: 71045; 80053; 84484; 85025; 93005; 96374; 99284; J2405; J7040

== ENCOUNTER 2021-10-15 07:01 | Outpatient (CLI) | payer OTHER, SELFPAY ==
--- NOTE | 2021-10-15 | US_ITS ---
WS: [id number] RENAL ULTRASOUND HISTORY: STAGE 3 CHRONIC RENAL DISEASE COMPARISON: 09/17/2019 TECHNIQUE: 2-D and color Doppler imaging of the kidney submitted. Right kidney: 20.3 cm x 11.2 cm x 10.4 cm. Markedly enlarged kidney with loss of the normal cortical medullary differentiation. There are maxwell us cysts of various sizes with no obstruction. No solid mass is identified. Some of the cysts contain low-level echoes but no increased enhancement. Left kidney: 20.0 cm x 12.0 cm x 8.6 cm. Markedly enlarged kidney with loss of the normal cortical medullary differentiation. Numerous cysts o f various sizes with no renal obstruction. No solid mass. Aorta: Normal. Urinary Bladder: Moderately well distended bladder. US/US renal BI* [id number] IMPRESSION: 1. Patient has known polycystic kidney disease. No solid mass or obstruction i dentified. 2. Moderately distended urinary bladder.
== END 2021-10-15 07:02 | disposition home or self-care (01) ==
LOC: US 07:01
PROVIDERS: PCP Family Medicine; Visit Provider Internal Medicine Nephrology
DX: N18.32 Chronic kidney disease, stage 3b (principal)
CPT/HCPCS: 76770

== ENCOUNTER → 2022-02-03 13:50 | Outpatient (BNVA) | payer OTHER, SELFPAY | PROVIDERS: PCP Family Medicine; Visit Provider Urology | DX: Q61.3 Polycystic kidney, unspecified (principal) | CPT/HCPCS: 81003 ==

== ENCOUNTER → 2022-09-20 09:30 | Outpatient (BNVA) | payer OTHER, SELFPAY | PROVIDERS: PCP Nurse Practitioner Family; Visit Provider Nurse Practitioner Women's Health | DX: N93.9 Abnormal uterine and vaginal bleeding, unspecified (principal) | CPT/HCPCS: 87624 ==

== ENCOUNTER → 2022-09-30 09:43 | Outpatient (BNVA) | payer OTHER, SELFPAY | PROVIDERS: PCP Nurse Practitioner Family; Visit Provider Nurse Practitioner Women's Health | DX: N93.9 Abnormal uterine and vaginal bleeding, unspecified (principal) | CPT/HCPCS: 81025; 84443; 85025; 88305 ==

== ENCOUNTER 2022-11-30 15:10 | Outpatient (CLI) | payer OTHER, SELFPAY ==
--- NOTE | 2022-11-30 15:13 | MM_ITS ---
WS: [id number] BILATERAL 3D TOMOSYNTHESIS DIGITAL SCREENING MAMMOGRAPHY WITH CAD CLINICAL INFORMATION: SCREENING HISTORY: Screening mammogram. No current complaints. COMPARISON: 2020 TECHNIQUE: Bilateral CC and MLO views. FINDINGS: The breasts are composed of heterogeneous fibroglandular density tissue, which can limit the detectio n of small underlying mass lesions. No suspicious mass, asymmetry, calcifications, or architectural d istortion. No evidence of malignancy. Biopsy clips LEFT breast. MM/[place] [id number] IMPRESSION: BI-RADS: 2-Benign FOLLOW UP: 1 Year Follow-up Recommend return to annual screening mammography.
== END 2022-11-30 15:11 | disposition home or self-care (01) ==
PROVIDERS: PCP Nurse Practitioner Family; Visit Provider Nurse Practitioner Family
DX: Z12.31 Encounter for screening mammogram for malignant neoplasm of breast (principal)
CPT/HCPCS: 77063; 77067

== ENCOUNTER 2024-02-29 07:44 | Outpatient (CLI) | payer OTHER, SELFPAY ==
--- NOTE | 2024-02-29 07:54 | MM_ITS ---
WS: [id number] BILATERAL SCREENING DIGITAL TOMOSYNTHESIS MAMMOGRAM WITH CAD HISTORY: SCREENING COMPARISON: 11/30/2022, 12/10/2020, 10/02/2019 Bilateral CC and MLO views with tomosynthesis and synthetic mammography submitted. Computer aided det ection analyzed. Breast composition: The breasts are heterogeneously dense, which may obscure small masses. No suspici ous masses, microcalcifications or architectural distortion. Biopsy clips 12:00 anterior LEFT breast are reidentified. There is a focal asymmetry in the posterior LEFT breast within the retromammary fat which was also noted on 12/10/2020 with no change. IMPRESSION: MM/[place] [id number] BI-RADS: 2-Benign FOLLOW UP: 1 Year Follow-up
== END 2024-02-29 07:45 | disposition home or self-care (01) ==
LOC: RAD 07:45
PROVIDERS: PCP Nurse Practitioner Family; Visit Provider Nurse Practitioner Family
DX: Z12.31 Encounter for screening mammogram for malignant neoplasm of breast (principal)
CPT/HCPCS: 77063; 77067

== ENCOUNTER 2024-12-04 15:32 | Outpatient (CLI) | payer SELFPAY ==
--- NOTE | 2024-12-04 15:52 | XR_ITS ---
WS: [id number] KUB, AP view, 12/04/2024 Clinical Data: NAUSEA WITH VOMITING Comparison: None. Findings: No abnormal intraabdominal masses or calcifications are seen. There is no dilatated small bowel or ev idence of obstruction. There are surgical clips in the central abdomen at the L1-L2 level. There is air in the small bowel a nd colon. XR/XR KUB [id number] Impression: Minimal generalized ileus.
== END 2024-12-04 15:33 | disposition home or self-care (01) ==
LOC: LAB 15:49
PROVIDERS: PCP Nurse Practitioner Family; Visit Provider Internal Medicine Nephrology
DX: N18.6 End stage renal disease (principal)
CPT/HCPCS: 74018